=== PATIENT | female | born 1950 | race Caucasian/White ===

== ENCOUNTER 2021-08-29 11:06 | Outpatient (CLI) | payer MEDICARE, SELFPAY ==
[2021-08-29 13:02] LABS: Chloride* 104 mmol/L (96-114); Potassium* 4.4 mmol/L (3.6-5.1); Sodium* 137 mmol/L (135-149)
[2021-08-29 13:05] LABS: Blood Urea Nitrogen* 10 mg/dL (7-30); Carbon Dioxide* 25 mmol/L (20-32); Creatinine* 0.6 mg/dL (0.5-1.5); Glucose* 92 mg/dL (60-115)
[2021-08-29 13:06] LABS: Calcium* 10.1 mg/dL (8.4-10.6)
[2021-08-29 13:18] LABS: Vitamin D 25 Hydroxy* 55 ng/mL (30-80)
== END 2021-08-29 11:07 | disposition home or self-care (01) ==
PROVIDERS: PCP Internal Medicine; Visit Provider Internal Medicine
DX: Z00.00 Encounter for general adult medical examination without abnormal findings (principal); I10 Essential (primary) hypertension; M85.80 Other specified disorders of bone density and structure, unspecified site; E03.9 Hypothyroidism, unspecified
CPT/HCPCS: 80048; 82306; 84443

== ENCOUNTER 2022-04-24 11:30 | Outpatient (RCR) | payer MEDICARE, SELFPAY ==
--- NOTE | 2022-01-24 18:23 | OT.OPOE ---
OT Outpatient Ortho Eval OT Outpatient Ortho Eval Start: 01/24/22 07:12 Freq: Status: Active Protocol: Document 01/24/22 07:12 AMB (Rec: 01/24/22 18:18 AMB [id number]) E-signed By Zora Paige, OTR/L, CLT, HAND POLISHER OT OP Ortho Eval Details Type Type Eval Complexity Low Insurance Information Insurance Information Medicare B Outpatient History/Precautions Current Condition/Medical Diagnosis Referring Provider Dr Casas Treatment Diagnosis TF RUE thumb Date of Onset Chronic Medical Conditions HTN Other Conditions PMH copied from ortho chart: Active Problems (Updated 01/06 @ 14:50 by Nia Reeder, WAQAS) Trigger finger of right thumb (Acute) M65.311 Vasomotor symptoms due to menopause (Acute) N95.1 On HRT Health care directive on file (Acute 06/09/03) Z78.9 Health Care Directive completed on 06/09/2003. Reviewed for scanning to medical record on 09/13/2020 Adenomatous polyp of colon ( Acute) D12.6 1 adenomatous polyp removed by colonoscopy ([facility]) 01/08, 1 tubular adenoma removed by colonoscopy here 03/16, due again 5Y Iatrogenic hypothyroidism ( Chronic 1970) E03.2 s/p radioactive iodine ablation in 1970s, not on levothyroxine (actual diagnosis of hyperthyroidism unknown) Allergic rhinitis (Chronic) J30.9 On postmenopausal hormone replacement therapy (Chronic) Z79.890 Primary insomnia (Chronic) F51 .01 Osteopenia (Chronic) M85.80 Last DEXA 05/2016; T score -2.0 . No report in outside records (she was on alendronate and Boniva in past), DEXA here --led to alendronate resumed 05/13 Essential hypertension ( Chronic) I10 Surgical History (Reviewed @ 14:27 by Nia Reeder, WAQAS) History of cholecystectomy ( 2007) History of parotidectomy (2005 ) History of tubal ligation ( 1985) History of unilateral oophorectomy (2007) Medical/Functional History Medical History Reviewed Yes Social History Employment Status Retired Oriented Mental Status No Concerns Ortho Subjective Subjective Subjective Pt states she moved in October and started noticing pain and clicking in her right thumb right after that. States she did a lot of gripping and pinching with packing and unpacking her things. Pt states she has pain with most activities that require use of her right hand as she is right handed. Pt states her thumb clicks whenever she bends it, so far, it does not fully lock. Pain Assessment Pain Present Pain Present Pain Reported Location Right Hand Description Sharp,Dull, Achy,Throbbing Intensity 6 Goniometric Comments Goniometric Comments Goniometric Comments Pt demonstrates full AROM of BUE, including the RUE thumb, however, pt does have pain and stenosing with IP flexion with MP in neutral or flexed, no stenosing with thumb at EROM radial abd with IP flexion. Hand Pinch/Livestock Haulier Strength Hand Left Livestock Haulier Strength Position 1 (lbs) 42 Lateral Pinch Strength (lbs) 14 Three Point Pinch (lbs) 10 Right Livestock Haulier Strength Position 1 (lbs) 25 Lateral Pinch Strength (lbs) 14 Three Point Pinch (lbs) 8 OT Objective Data Hand Hand Dominance Right OT Problems Problems Problems Decreased Strength,Decreased Range of Motion,Decreased Dexterity,Decreased Fine Motor ,Decreased Coordination, Gripping,Pinching Other Problems Writing,Opening Containers Patient Potential Good Assessment Assessment Assessment Pt presents to OT with complaints of painful catching in her right thumb. Pt states it's difficult to open water bottles, hold a book, pinch small objects and picking anything up. Pt is exquisitely ttp over the RUE thumb A1 kenn. Pt demonstrates weakness in her RUE grasp as compared to the LUE. Pt will benefit from skilled OT intervention to address pain, weakness and stenosing. Occupational Therapy Treatment Plan - OP Potential Rehabilitation Potential Good Set Goals Goals Set with Patient Yes Goals Goals 1. Pt will be independent and compliant with HEP in order to resume full, pain-free use of the involved UE. 3 weeks 2. Pt will demonstrate full, pain-free AROM of the involved UE in order to improve ability to grasp and hold. 6 weeks 3. Pt will demonstrate pain- free pole classifier and pinch strength comparable to the uninvolved side in order to improve functional grasp, hold, reach, and lifting ability needed to complete self-care, leisure tasks, and work activities. 8 weeks. Progress set Treatment Plan Treatment Plan Evaluation,Edema Control, Iontophoresis,Joint Mobilization,Manual Therapy, Splinting,Ultrasound, Therapeutic Exercise, Therapeutic Activities,Self- Care/Home Management,Education Expected Frequency 1-2x Week Expected Duration 6-8 Weeks Certification Certification I Certify That: Therapy Services Provided, Therapy Plan Established, Therapy Plan Reviewed Recertification Information Recertification Information Initial Certification Date 01/24/22 Recertification Due Date 04/24/22 Reasons to Continue Skilled Therapy Initiating OT today to address pain, weakness and limited ROM in RUE secondary to TF of the thumb Rehabilitation Potential Good Provider Signature Shows Agreement With POC & Medical Necessity Physician Comment/Change Comment or Changes Physician NPI Number #
--- NOTE | 2022-02-28 16:06 | OT.OPOE ---
OT Outpatient Ortho Eval OT Outpatient Ortho Eval Start: 01/24/22 07:12 Freq: Status: Active Protocol: Document 01/24/22 07:12 AMB (Rec: 01/24/22 18:18 AMB [id number]) E-signed By Zora Paige, OTR/L, CLT, CRIMINAL ANALYST OT OP Ortho Eval Details Type Type Eval Complexity Low Insurance Information Insurance Information Medicare B Outpatient History/Precautions Current Condition/Medical Diagnosis Referring Provider Dr Casas Treatment Diagnosis TF RUE thumb Date of Onset Chronic Medical Conditions HTN Other Conditions PMH copied from ortho chart: Active Problems (Updated 01/06 @ 14:50 by Nia Reeder, WAQAS) Trigger finger of right thumb (Acute) M65.311 Vasomotor symptoms due to menopause (Acute) N95.1 On HRT Health care directive on file (Acute 06/09/03) Z78.9 Health Care Directive completed on 06/09/2003. Reviewed for scanning to medical record on 09/13/2020 Adenomatous polyp of colon ( Acute) D12.6 1 adenomatous polyp removed by colonoscopy ([facility]) 01/08, 1 tubular adenoma removed by colonoscopy here 03/16, due again 5Y Iatrogenic hypothyroidism ( Chronic 1970) E03.2 s/p radioactive iodine ablation in 1970s, not on levothyroxine (actual diagnosis of hyperthyroidism unknown) Allergic rhinitis (Chronic) J30.9 On postmenopausal hormone replacement therapy (Chronic) Z79.890 Primary insomnia (Chronic) F51 .01 Osteopenia (Chronic) M85.80 Last DEXA 05/2016; T score -2.0 . No report in outside records (she was on alendronate and Boniva in past), DEXA here --led to alendronate resumed 05/13 Essential hypertension ( Chronic) I10 Surgical History (Reviewed @ 14:27 by Nia Reeder, WAQAS) History of cholecystectomy ( 2007) History of parotidectomy (2005 ) History of tubal ligation ( 1985) History of unilateral oophorectomy (2007) Medical/Functional History Medical History Reviewed Yes Social History Employment Status Retired Oriented Mental Status No Concerns Ortho Subjective Subjective Subjective Pt states she moved in October and started noticing pain and clicking in her right thumb right after that. States she did a lot of gripping and pinching with packing and unpacking her things. Pt states she has pain with most activities that require use of her right hand as she is right handed. Pt states her thumb clicks whenever she bends it, so far, it does not fully lock. Pain Assessment Pain Present Pain Present Pain Reported Location Right Hand Description Sharp,Dull, Achy,Throbbing Intensity 6 Goniometric Comments Goniometric Comments Goniometric Comments Pt demonstrates full AROM of BUE, including the RUE thumb, however, pt does have pain and stenosing with IP flexion with MP in neutral or flexed, no stenosing with thumb at EROM radial abd with IP flexion. Hand Pinch/Kindergarten Teacher Assistant Strength Hand Left Kindergarten Teacher Assistant Strength Position 1 (lbs) 42 Lateral Pinch Strength (lbs) 14 Three Point Pinch (lbs) 10 Right Kindergarten Teacher Assistant Strength Position 1 (lbs) 25 Lateral Pinch Strength (lbs) 14 Three Point Pinch (lbs) 8 OT Objective Data Hand Hand Dominance Right OT Problems Problems Problems Decreased Strength,Decreased Range of Motion,Decreased Dexterity,Decreased Fine Motor ,Decreased Coordination, Gripping,Pinching Other Problems Writing,Opening Containers Patient Potential Good Assessment Assessment Assessment Pt presents to OT with complaints of painful catching in her right thumb. Pt states it's difficult to open water bottles, hold a book, pinch small objects and picking anything up. Pt is exquisitely ttp over the RUE thumb A1 kenn. Pt demonstrates weakness in her RUE grasp as compared to the LUE. Pt will benefit from skilled OT intervention to address pain, weakness and stenosing. Occupational Therapy Treatment Plan - OP Potential Rehabilitation Potential Good Set Goals Goals Set with Patient Yes Goals Goals 1. Pt will be independent and compliant with HEP in order to resume full, pain-free use of the involved UE. 3 weeks 2. Pt will demonstrate full, pain-free AROM of the involved UE in order to improve ability to grasp and hold. 6 weeks 3. Pt will demonstrate pain- free bucket hooker and pinch strength comparable to the uninvolved side in order to improve functional grasp, hold, reach, and lifting ability needed to complete self-care, leisure tasks, and work activities. 8 weeks. Progress set Treatment Plan Treatment Plan Evaluation,Edema Control, Iontophoresis,Joint Mobilization,Manual Therapy, Splinting,Ultrasound, Therapeutic Exercise, Therapeutic Activities,Self- Care/Home Management,Education Expected Frequency 1-2x Week Expected Duration 6-8 Weeks Certification Certification I Certify That: Therapy Services Provided, Therapy Plan Established, Therapy Plan Reviewed Recertification Information Recertification Information Initial Certification Date 01/24/22 Recertification Due Date 04/24/22 Reasons to Continue Skilled Therapy Initiating OT today to address pain, weakness and limited ROM in RUE secondary to TF of the thumb Rehabilitation Potential Good Provider Signature Shows Agreement With POC & Medical Necessity Physician Comment/Change Comment or Changes Physician NPI Number #
== END 2022-04-24 12:56 | disposition home or self-care (01) ==
PROVIDERS: PCP Internal Medicine; Visit Provider Orthopaedic Surgery
DX: M65.311 Trigger thumb, right thumb (principal); Z51.89 Encounter for other specified aftercare
CPT/HCPCS: 97035; 97140; 97165

== ENCOUNTER 2022-09-18 12:44 | Outpatient (CLI) | payer MEDICARE, SELFPAY ==
--- NOTE | 2022-09-18 13:00 | CRLHL7_ITS ---
For Patients: As a result of the Century Cures Act, medical imaging exams and procedure reports are released immediately into your electronic medical record. You may view this report before your referring provider. If you have questions, please contact your health care provider. BILATERAL DIGITAL SCREENING MAMMOGRAM WITH TOMOSYNTHESIS AND COMPUTER-AIDED DETECTION CLINICAL HISTORY: Routine screening exam. COMPARISON: 07/05/2021, 04/26/2020. TECHNIQUE: Digital mammogram in CC and MLO projections including computer-aided detection (CAD). Tomosynthesis utilized. BREAST COMPOSITION: There are areas of scattered fibroglandular density. FINDINGS: RIGHT Breast: No suspicious findings. LEFT Breast: Nodular density within the lower inner quadrant 6 cm from the nipple. IMPRESSION: LEFT breast asymmetry/mass. RECOMMENDATIONS: Additional mammographic views of the LEFT breast including 3D spot compression CC/MLO. LEFT breast ultrasound may also be required. BI-RADS Category 0: Incomplete: Need Additional Imaging Evaluation and/or Prior Mammograms for Comparison The [facility] will contact the patient for follow-up. A lay language report of this examination will be provided to the patient. Dictated by Ari Au MD @ 09/19/2022 8:32:55 AM jj/Dictated by: Ari Au MD @ 09/19/2022 8:32:00 AM (Electronically Signed)
== END 2022-09-18 12:45 | disposition home or self-care (01) ==
LOC: MAMMO 12:45
PROVIDERS: PCP Internal Medicine; Visit Provider Internal Medicine
DX: Z12.31 Encounter for screening mammogram for malignant neoplasm of breast (principal); N63.20 Unspecified lump in the left breast, unspecified quadrant
CPT/HCPCS: 77063; 77067

== ENCOUNTER 2022-09-23 10:31 | Outpatient (CLI) | payer MEDICARE, SELFPAY ==
--- NOTE | 2022-09-23 10:45 | CRLHL7_ITS ---
For Patients: As a result of the Cures Act, medical imaging exams and procedure reports are released immediately into your electronic medical record. You may view this report before your referring provider. If you have questions, please contact your health care provider. DIGITAL DIAGNOSTIC LEFT MAMMOGRAM USING TOMOSYNTHESIS AND COMPUTER-AIDED DETECTION LEFT BREAST ULTRASOUND CLINICAL HISTORY: LEFT breast mass/asymmetry. COMPARISON: 09/18/2022. TECHNIQUE: Digital LEFT mammogram in two projections. Tomosynthesis and CAD utilized. Real-time ultrasound imaging of LEFT breast with imaging documentation. Scanning was performed by both the technologist and the radiologist. BREAST COMPOSITION: There are areas of scattered fibroglandular density. FINDINGS: 3D spot compression CC/MLO LEFT breast mammogram images submitted. Persistent nodular density within the inferior LEFT breast. No architectural distortion. Targeted LEFT breast ultrasound 6 o`clock 5 cm from the nipple. There is a macrolobular hypoechoic/anechoic nodular density at mid depth measuring 7 x 6 x 6 millimeters. IMPRESSION: Complicated cyst versus solid nodule LEFT breast 6 o`clock 5 cm from the nipple measuring 7 millimeters. RECOMMENDATIONS: Ultrasound-guided biopsy recommended. Results and recommendations discussed with the patient. BI-RADS Category 4: Suspicious A lay language report of this examination will be provided to the patient. Dictated by Ari Au MD @ 09/23/2022 11:32:03 AM /Dictated by: Ari Au MD @ 09/23/2022 11:32:00 AM (Electronically Signed)
--- NOTE | 2022-09-23 11:15 | CRLHL7_ITS ---
For Patients: As a result of the Century Cures Act, medical imaging exams and procedure reports are released immediately into your electronic medical record. You may view this report before your referring provider. If you have questions, please contact your health care provider. PLEASE SEE DIGITAL DIAGNOSTIC LEFT MAMMOGRAM PERFORMED THE SAME DAY CRL:walker cardoso/Dictated by: Ari Au MD @ 09/23/2022 11:32:00 AM (Electronically Signed)
== END 2022-09-23 10:32 | disposition home or self-care (01) ==
LOC: MAMMO 10:32
PROVIDERS: PCP Family Medicine; Visit Provider Internal Medicine
DX: N63.20 Unspecified lump in the left breast, unspecified quadrant (principal); R92.8 Other abnormal and inconclusive findings on diagnostic imaging of breast
CPT/HCPCS: 76642; 77065; G0279

== ENCOUNTER 2022-09-29 09:01 | Outpatient (CLI) | payer MEDICARE, SELFPAY ==
--- NOTE | 2022-09-29 09:15 | CRLHL7_ITS ---
For Patients: As a result of the Century Cures Act, medical imaging exams and procedure reports are released immediately into your electronic medical record. You may view this report before your referring provider. If you have questions, please contact your health care provider. ULTRASOUND-GUIDED BREAST BIOPSY AND POST-BIOPSY DIGITAL MAMMOGRAM FOR BIOPSY MARKER PLACEMENT CLINICAL HISTORY: Indeterminate lesion, possible cyst. COMPARISON STUDIES: 09/23/2022, 09/18/2022. TECHNIQUE: Real-time ultrasound with image documentation was used for targeting the breast lesion. Core biopsy specimens were obtained using an automated gun with an 18-gauge biopsy needle. Post-biopsy CC and ML digital mammograms were obtained to document position of the biopsy marker. CONSENT and TIME OUT: The procedure, risks, and alternatives were explained to the patient and a consent was signed. [place] Protocol was followed including pre-procedure verification that relevant information/documentation was available, reviewed and properly matched to the patient; consent accurate and complete; and equipment and supplies available. Time Out was conducted just prior to starting procedure to verify the four required elements: patient identity, correct side/site marked (if applicable), procedure, relevant images/results properly labeled and displayed (if applicable). PROCEDURE: The patient was positioned supine on the ultrasound table. The breast was prepped with ChloraPrep. 6 cc of 1 percent lidocaine used for local anesthesia. Core samples were obtained. A sterile metal biopsy clip was placed percutaneously to ankit the lesion position within the breast. The specimens were placed in 10% formalin and sent to the pathology department. Pressure was held on the biopsy site until all bleeding subsided. The skin incision was closed with Steri-Strips. An ice pack was positioned over the biopsy site. Post-biopsy instructions were reviewed with the patient, and a written copy was given to her. LATERALITY: LEFT. LESION: Hypoechoic nodular structure measuring 7 x 6 x 6 millimeters at 6 o`clock 5 cm from the nipple. The lesion became less conspicuous during the exam suggesting benign cyst. SUSPICION FOR MALIGNANCY: Low. NUMBER OF SAMPLES: 5. BIOPSY CLIP SHAPE: Oval. PROXIMITY OF CLIP TO TARGET: Within the lesion. IMPRESSION: Ultrasound-guided breast biopsy. When the pathology report is available, an addendum to this report will be made. ACR not applicable Dictated by Ari Au MD @ 09/29/2022 10:16:51 AM jj/Dictated by: Ari Au MD @ 09/29/2022 10:16:00 AM ADDENDUM: Pathology consistent with nonproliferative fibrocystic change. No evidence of atypia or malignancy. This is concordant. Resume annual screening mammography. Dictated by: Ari Au MD @10/02/2022 10:52:09 AM / CRL:walker (Electronically Signed)
--- NOTE | 2022-09-29 10:00 | CRLHL7_ITS ---
For Patients: As a result of the Century Cures Act, medical imaging exams and procedure reports are released immediately into your electronic medical record. You may view this report before your referring provider. If you have questions, please contact your health care provider. PLEASE SEE ULTRASOUND-GUIDED LEFT BREAST BIOPSY PERFORMED SAME DAY CRL:walker cardoso/Dictated by: Ari Au MD @ 09/29/2022 10:14:00 AM (Electronically Signed)
== END 2022-09-29 09:02 | disposition home or self-care (01) ==
LOC: US 09:02
PROVIDERS: PCP Family Medicine; Visit Provider Internal Medicine
DX: R92.8 Other abnormal and inconclusive findings on diagnostic imaging of breast (principal); N60.02 Solitary cyst of left breast; N63.20 Unspecified lump in the left breast, unspecified quadrant
CPT/HCPCS: 19083; 77065; 88305; A4648; A4649

== ENCOUNTER 2022-10-02 09:07 | Outpatient (CLI) | payer MEDICARE, SELFPAY | END 2022-10-02 09:08 | disposition home or self-care (01) | PROVIDERS: PCP Family Medicine; Visit Provider Family Medicine | DX: Z00.00 Encounter for general adult medical examination without abnormal findings (principal); I10 Essential (primary) hypertension; E03.2 Hypothyroidism due to medicaments and other exogenous substances | CPT/HCPCS: 80048; 80061; 84443 ==

== ENCOUNTER 2023-03-13 13:30 | Outpatient (RCR) | payer MEDICARE, SELFPAY | END 2023-07-11 23:59 | disposition home or self-care (01) | PROVIDERS: PCP Family Medicine; Visit Provider Orthopaedic Surgery | DX: M65.311 Trigger thumb, right thumb (principal); M79.644 Pain in right finger(s); M25.641 Stiffness of right hand, not elsewhere classified; Z51.89 Encounter for other specified aftercare | CPT/HCPCS: 97035; 97140; 97165 ==

== ENCOUNTER 2023-04-14 12:34 | Outpatient (CLI) | payer MEDICARE, SELFPAY ==
--- OUTSIDE RECORDS SUMMARY | 2023-04-14 12:43 | XMS_ITS | Clinical Summary ---
Author Name Unknown Organization [facility] [facility] [employer] [facility] Address [place], [place] [address] Care Team Providers Care Press Service Reader Name Role Phone Unavailable Primary Care Provider Unavailabl e Allergies No known active allergies Medications Medication Sig Dispensed Refills Start Date End Date Status levothyroxine (SYNTHROID) 100 mcg tablet Take 1 tablet by mouth before breakfast. 0 07/10/2011 Active losartan (COZAAR) 100 mg tablet Take 1 tablet by mouth once daily. 0 07/10/2011 Active ergocalciferol (VITAMIN D) 50,000 unit capsule Take 1 capsule by mouth every Thursday and . Take 1 capsule by mouth by every thursday 0 07/10/2011 Active aspirin enteric coated 81 mg tablet Take 1 tablet by mouth once daily with a meal. 0 07/10/2011 Active calcium-vitamin D3-vitamin K, 500 mg-100 units-40 mcg, (VIACTIV) 500-100-40 mg-unit-mcg chewable tablet Take 1 tablet by mouth once daily. Chew 3 tablets daily 0 07/10/2011 Active omega-3 fatty acids-vitamin E (FISH OIL) 1,000 mg Cap Take by mouth. Take 2 capsules by mouth daily 0 07/10/2011 Active Social History Tobacco Use Types Packs/Day Years Used Date Smoking Tobacco: Never Smokeless Tobacco: Never Alcohol Use Standard Drinks/Week Comments Yes 0 (1 standard drink = 0.6 oz pur e alcohol) 6 weekly Sex and Gender Information Value Date Recorded Sex Assigned at Not on file Gender Identity Not on file Sexual Orientation Not on file Obstetrics History Last Filed Vital Signs Vital Sign Reading Time Taken Comments Blood Pressure 102/70 07/10/2011 9:08 AM CDT Pulse 72 07/10/2011 9:08 AM CDT Temperature - - Respiratory Rate 16 07/10/2011 9:08 AM CDT Oxygen Saturation - - Inhaled Oxygen Concentration - - Weight 74.8 kg (164 lb 12.8 oz) 07/10/2011 9:08 AM CDT Height 137.2 cm (4' 6) 07/10/2011 9:08 AM CDT Body Mass Index 39.73 07/10/2011 9:08 AM CDT Plan of Treatment Health Maintenance Due Date Last Done Comments COVID-19 vaccine series (#1) [birth year]14/1951 Tdap 1961 Depression screening for age 12+ 1962 BMI (ht and wt on same day) for age 18+ 1968 Hepatitis C screening for age 18-79 1968 Tetanus booster 1970 Colonoscopy through age 75 12/14/1995 Lipids for age 45-75 12/14/1995 Zoster (shingles) series for age 50+ (1 of 2) 2000 Mammogram for age 45-75 11/12/2005 11/12/2004, 10/30 DEXA/DXA scan for age 65+ 12/14/2015 Pneumococcal series for age 65+ (1 of 1 - PCV) 12/14/2015 Influenza for age 65+ 10/24/2022
--- NOTE | 2023-04-14 13:00 | XR_ITS ---
Patient: KENIA DUPREE Facility:?[facility] Patient ID:?[id number] Site Patient ID:?[id number]. Site :?[id number] Study:?DEXA-Bone Density DEXA - Spine/Hips-04/14/2023 1:50:53 PM Ordering Physician:JAKI Final Report: DXA BONE MINERAL DENSITY STUDY Reason for exam: Osteopenia. Current height (in): 61. Weight (lb): 140. Menopause age: 50. Ethnicity: White. 1. Have you had a previous hip or vertebral fracture? No. 2. Have you had any fractures during your adult life which did not result from significant trauma (e.g., auto accident)? No. 3. Did either of your parents have a hip fracture? No. 4. Do you smoke? No. 5. Have you ever taken Glucocorticoids? No. 6. Do you have rheumatoid arthritis? No. 7. Do you have secondary osteoporosis? No. 8. Do you drink 3 or more alcoholic drinks per day? No. 9. Are you being treated for osteoporosis? No. 10. Have you ever taken any of the following medications: Actonel, Evista, Fosamax, Miacalcin, Reclast, Boniva, Forteo, HRT (i.e., estrogen/hormone therapy), Protelos, Prolia, Vitamin D, Calcium, other ? please specify. ANSWER: Yes, Fosamax, vitamin D, HRT, and calcium. 11. Do you have any of the following medical conditions: Anorexia or bulimia, asthma or emphysema, end stage renal disease, hyperparathyroidism, any seizure disorders, cancer, inflammatory bowel diseases, hysterectomy, other ? please specify. ANSWER: No. 12. What was your maximum height (inches)? 61. 13. Do you perform weight bearing exercise regularly? Yes. 14. Do you regularly consume dairy products? Yes. 15. Do you drink caffeinated beverages? Yes. If female: 16. At what age did your period start? 12. 17. Are you premenopausal? No. 18. How many full-term pregnancies have you had? 0. 19. Have you ever missed your period for more than 6 months in a row (not including or menopause)? Not provided. TECHNIQUE: Bone mineral density study was performed using the [employer]. FINDINGS: The results of the study expressed as bone mineral density (BMD) are as follows: Lumbar spine L1 to L4: BMD: 0.969 g/cm2. T-score: -0.7. Z-score: 1.5 Neck Left: BMD: 0.608 g/cm2. T-score: -2.2. Z-score: -0.2 Right: BMD: 0.642 g/cm2. T-score: -1.9. Z-score: 0.1 Total Left: BMD: 0.775 g/cm2. T-score: -1.4. Z-score: 0.3 Right: BMD: 0.772 g/cm2. T-score: -1.4. Z-score: 0.2 IMPRESSION: Osteopenia. *Comparison exams done prior to 07/2019 were performed on different unit, [employer]. COMPARISON: Compared with scan of 04/26/2020, the bone mineral density has decreased by 4.1 percent at the spine and no change by 0.0 percent at the hip. FRAX 10-year Fracture Risk Major Osteoporotic Fracture: 13% Hip Fracture: 3.1% Reported Risk Factors: [place] () Neck BMD=0.608, BMI=26.5 Ari Au M.D. Diagnostic Radiologist [email or web address] CORNELL/walker walker/Dictated by: Ari Au MD @ 04/15/2023 7:13:00 AM Signed by:?Ari Au MD @04/16/2023 4:13:17 PM (Electronic Signature)
== END 2023-04-14 12:35 | disposition home or self-care (01) ==
PROVIDERS: PCP Family Medicine; Visit Provider Family Medicine
DX: M85.80 Other specified disorders of bone density and structure, unspecified site (principal); M85.88 Other specified disorders of bone density and structure, other site
CPT/HCPCS: 77080

== ENCOUNTER 2023-08-24 13:48 | Outpatient (CLI) | payer MEDICARE, SELFPAY ==
--- OUTSIDE RECORDS SUMMARY | 2023-08-27 02:48 | XMS_ITS | Clinical Summary ---
Author Organization [facility] Address [place], [place] [address] Care Team Providers Care Source Water Protection Specialist Name Role Phone Unavailable Primary Care Provider [...] Health Maintenance Due Date Last Done Comments Tdap 1961 Depression screening for age 12+ [...] 65+ (1 of 1 - PCV) 12/14/2015 COVID-19 vaccine series ( - 2022-24 season) 2022 Influenza for age 65+ 10/25/2023 Procedures Procedure Name Priority Date/Time Associated Diagnosis Comments XR MAMMO BILAT SCREEN FFDM (IA) Timed 11/12/2004 4:44 PM CDT from Last 3 Months or Most Recently Relevant to Health Maintenance Results * BC SCR FFD YANELI SANGEETHA (11/12/2004 4:44 PM CDT) Anatomical Region Laterality Modality BREASTS, Breast Left, Breast Right Bilateral Mammography 11/12/2004 4:23 PM CDT Narrative 11/13/2004 9:40 AM CDT 11/12/04 ??BILATERAL SCREENING FULL FIELD DIGITAL MAMMOGRAPHY WITH CAD HISTORY: ??SCREENING COMPARISON: ??10/26/01 TECHNIQUE: ??FULL FIELD DIGITAL MAMMOGRAPHY WITH COMPUTER AIDED DETECTION. NO SIGNIFICANT CHANGE SINCE PREVIOUS MAMMOGRAM. ??NO EVIDENCE OF MALIGNANCY. ASSESSMENT: ??ACR CATEGORY 1, NEGATIVE. Too Ahumada MD MAMMO from Last 3 Months or Most Recently Relevant to Health Maintenance
== END 2023-08-24 13:49 | disposition home or self-care (01) ==
LOC: NFLDREF 08-27 02:47
PROVIDERS: PCP Family Medicine; Referring Provider Family Medicine; Visit Provider Family Medicine
DX: N39.0 Urinary tract infection, site not specified (principal)
CPT/HCPCS: 87086

== ENCOUNTER 2023-09-28 12:34 | Outpatient (CLI) | payer MEDICARE, SELFPAY ==
--- OUTSIDE RECORDS SUMMARY | 2023-09-28 12:37 | XMS_ITS | Clinical Summary ---
Author Organization [facility] Address [place], [place] [address] Care Team Providers Care [employer] Wa[employer] Depositor Name Role Phone Unavailable Primary Care Provider [...]
--- NOTE | 2023-09-28 13:00 | CRLHL7_ITS ---
For Patients: As a result of the Century Cures Act, medical imaging exams and procedure reports are released immediately into your electronic medical record. You may view this report before your referring provider. If you have questions, please contact your health care provider. BILATERAL SCREENING MAMMOGRAM WITH COMPUTER-AIDED DETECTION AND TOMOSYNTHESIS TECHNIQUE: CC and MLO views were obtained. These mammographic images have been obtained using full-field digital technique. These mammographic images were interpreted with the benefit of computer-aided detection. Breast tomosynthesis was used in this interpretation. COMPARISON FILM: 09/18/22, 07/05/21, 04/26/20. FINDINGS: There are scattered areas of fibroglandular density. IMPRESSION: There is no radiographic evidence for malignancy. ASSESSMENT: BI-RADS Category 2: Benign RECOMMENDATION: Routine screening mammogram in 1 year. A lay language report of this examination will be provided to the patient. ARI RIVERA M.D. Diagnostic Radiologist [email or web address] Transcribed: 3:[address]/Dictated by: Ari Rivera MD @ 09/29/2023 12:11:00 PM (Electronically Signed)
== END 2023-09-28 12:35 | disposition home or self-care (01) ==
LOC: MAMMO 12:35
PROVIDERS: PCP Family Medicine; Visit Provider Family Medicine
DX: Z12.31 Encounter for screening mammogram for malignant neoplasm of breast (principal)
CPT/HCPCS: 77063; 77067

== ENCOUNTER 2023-10-06 08:18 | Outpatient (CLI) | payer MEDICARE, SELFPAY ==
--- OUTSIDE RECORDS SUMMARY | 2023-10-06 08:21 | XMS_ITS | Clinical Summary ---
Author Organization [facility] Address [place], [place] [address] Care Team Providers Care Db2 Developer Name Role Phone Unavailable Primary Care Provider [...]
== END 2023-10-06 08:19 | disposition home or self-care (01) ==
PROVIDERS: PCP Family Medicine; Visit Provider Family Medicine
DX: E03.2 Hypothyroidism due to medicaments and other exogenous substances (principal); I10 Essential (primary) hypertension; Z13.220 Encounter for screening for lipoid disorders
CPT/HCPCS: 80048; 80061; 84443

== ENCOUNTER 2023-10-08 06:13 | Day surgery (SDC) | payer MEDICARE, SELFPAY ==
[2023-10-08] VITALS (9 sets, daily range): BP systolic 151–174; BP diastolic 73–83; PULSE 77–94; RESP 16; TEMP 36.4–36.9; O2SAT 96–100; BMI 27.0
--- OUTSIDE RECORDS SUMMARY | 2023-10-08 06:15 | XMS_ITS | Clinical Summary ---
Author Organization [facility] Address [place], [place] [address] Care Team Providers Care [employer] Consultant Name Role Phone Unavailable Primary Care Provider [...]
[2023-10-08] MEDS: ETHYL CHLORIDE 1 APPLICATION 1 APPLIC TOPICAL (07:00)
[2023-10-08] MEDS: LIDOCAINE 1 % PF 30 ML 4 ML INJECTION (07:00)
[2023-10-08] MEDS: BUPIVACAINE 0.5 %/EPI 1:200K INJECTION (07:00)
--- NOTE | 2023-10-08 07:48 | PM.ORPRC ---
Procedure Note Date of procedure: 10/08/23 Procedure: Preop diagnosis: Right thumb stenosing tenosynovitis Postop diagnosis: Right thumb stenosing tenosynovitis Procedure: Right thumb A1 kenn release Anesthesia: Local Surgeon: Carl Casas MD fast food assistant restaurant manager: DIOGO Penny EBL: 2 mL Complications: None Specimens: None Drains: None Preoperative antibiotics: None Indications: The patient has a history of right thumb painful catching and locking. Despite appropriate non operative management including flexor tendon sheath corticosteroid injections they continue to have symptoms. Operative intervention was recommended. The risks, benefits alternatives and expected outcomes were discussed in detail. These included but were not limited to: Infection, bleeding, injury to blood vessel or nerve, venous thromboembolism. All questions were answered to their satisfaction. The patient was placed supine on the operating room table. Local anesthesia was established with 0.5% Marcaine with epinephrine and 2% lidocaine with epinephrine. The hand was prepped and draped in usual sterile fashion. A transverse incision was made in the MP flexion crease of the thumb. Subcutaneous dissection was taken through the palmar fascia to the flexor tendons with the tenotomy scissors. The A1 kenn was released with the 15 blade and the tenotomy scissors. The edges of the A1 kenn were sharply resected. Active flexion and extension of the thumb shows no catching or locking, no bowstringing of the flexor tendons. The wound was closed with interrupted nylon sutures. A dry dressing was applied the tourniquet was released. Sponge and needle counts were correct x 2. The patient tolerated the procedure well, there were no apparent complications. They were sent to same day surgery in satisfactory condition. Plan: Use of the hand as tolerates. Discontinue the intraoperative dressing on postoperative day 3 and may get the wound wet as tolerates. Follow up in the office in 2 weeks for a wound check and suture removal.
== END 2023-10-08 08:11 | disposition home or self-care (01) ==
LOC: OR 06:14
PROVIDERS: PCP Family Medicine; Visit Provider Orthopaedic Surgery
PROC: (CPT 26055; principal; 2023-10-08 07:15)
DX: M65.311 Trigger thumb, right thumb (principal); M65.841 Other synovitis and tenosynovitis, right hand
CPT/HCPCS: 26055; 96366; 96376; J2001; J3490

== ENCOUNTER 2024-09-29 12:31 | Outpatient (CLI) | payer MEDICARE, SELFPAY ==
--- NOTE | 2024-09-29 13:00 | CRLHL7_ITS ---
For Patients: As a result of the Century Cures Act, medical imaging exams and procedure reports are released immediately into your electronic medical record. You may view this report before your referring provider. If you have questions, please contact your health care provider. INDICATION: BILATERAL SCREENING MAMMOGRAM, ASYMPTOMATIC 73 Y/O FEMALE COMPARISON: 09/28/2023, 09/18/2022,07/05/2021 TECHNIQUE: Digital mammogram in CC and MLO projections including computer-aided detection (CAD) and tomosynthesis. BREAST COMPOSITION: There are scattered areas of fibroglandular density. FINDINGS: No suspicious findings. ASSESSMENT: BI-RADS 2 Benign RECOMMENDATION: Annual screening mammogram. A lay language report of this examination will be provided to the patient. Dictated by: Ari Au MD @ 09/30/2024 09:07:10 (Electronically Signed)
== END 2024-09-29 12:32 | disposition home or self-care (01) ==
LOC: MAMMO 12:31
PROVIDERS: PCP Family Medicine; Visit Provider Family Medicine
DX: Z12.31 Encounter for screening mammogram for malignant neoplasm of breast (principal)
CPT/HCPCS: 77063; 77067

== ENCOUNTER 2024-10-06 08:19 | Outpatient (CLI) | payer MEDICARE, SELFPAY | END 2024-10-06 08:20 | disposition home or self-care (01) | PROVIDERS: PCP Family Medicine; Visit Provider Family Medicine | DX: E03.2 Hypothyroidism due to medicaments and other exogenous substances (principal); I10 Essential (primary) hypertension; M85.80 Other specified disorders of bone density and structure, unspecified site | CPT/HCPCS: 80048; 80061; 84443; 84460 ==